=== PATIENT | male | born 1980 | race Caucasian/White ===

== ENCOUNTER 2017-12-07 02:18 | Emergency (ER) | payer BC ==
[2017-12-07 02:35] VITALS: BMI 21.4
[2017-12-07] MEDS ORDERED: Sodium Chloride 0.9% 1,000 ML IV ONE (02:42)
--- NOTE | 2017-12-07 02:47 | C.PDOC ---
History Of Present Illness 36 year old male presents to the ED complaining of left sided flank pain starting 3 hours ago. Patient states he noticed dark urine. Patient reports he has a history of kidney stones and has not had one in three years but current symptoms feel similar. Patient reports he took naproxen and felt no relief; denies any other physical complaint. Time Seen by Provider: 12/07/17 02:42 Chief Complaint (Nursing): Abdominal Pain History Per: Patient History/Exam Limitations: no limitations Onset/Duration Of Symptoms: Hrs (x3) Current Symptoms Are (Timing): Still Present Location Of Pain/Discomfort: RLQ Quality Of Discomfort: "Pain" Associated Symptoms: Urinary Symptoms (dark urine) Past Medical History Reviewed: Historical Data, Nursing Documentation, Vital Signs Vital Signs: Last Vital Signs Temp 97.8 F 12/07/17 02:35 Pulse 62 12/07/17 02:35 Resp 19 12/07/17 02:35 BP 126/88 12/07/17 02:35 Pulse Ox 100 12/07/17 05:25 Surgical History: Appendectomy Family History: States: Unknown Family Hx - Social History Hx Alcohol Use: No Hx Substance Use: No - Immunization History Hx Tetanus Toxoid Vaccination: No Hx Influenza Vaccination: No Hx Pneumococcal Vaccination: No Review Of Systems Except As Marked, All Systems Reviewed And Found Negative. Genitourinary: Positive for: Other (Dark urine) Physical Exam - Physical Exam Appears: Non-toxic, Other (uncomfortable) Cardiovascular: Rhythm Regular Respiratory: Normal Breath Sounds, No Rales, No Rhonchi, No Wheezing Gastrointestinal/Abdominal: Soft, No Tenderness Back: No CVA Tenderness Neurological/Psych: Oriented x3, Normal Sensation, Other (no focal deficits) Gait: Steady ED Course And Treatment - Laboratory Results Result Diagrams: 12/07/17 03:02 12/07/17 03:02 Lab Interpretation: Abnormal O2 Sat by Pulse Oximetry: 100 (RA) Pulse Ox Interpretation: Normal - CT Scan/US abd/pelvis Other Rad Studies (CT/US): Read By Radiologist, Radiology Report Reviewed ( Ashley Lozano MD) CT/US Interpretation: EXAM: CT Abdomen and Pelvis Without Intravenous Contrast. CLINICAL HISTORY: 36 years old, male; Pain; Abdominal pain and other : Ho kidney stone; Additional info: Left flank pain. h. O stones. TECHNIQUE: Axial computed tomography images of the abdomen and pelvis without intravenous contrast. All CT. scans at this facility use one or more dose reduction techniques, viz.: automated exposure control;. ma/kV adjustment per patient size (including targeted exams where dose is matched to indication; i.e. head) ; or iterative reconstruction technique. 648 images are submitted. Axial images are submitted. in soft tissue and lung windows. Coronal and sagittal reformatted images were created and reviewed. COMPARISON: No relevant prior studies available. FINDINGS: Artifacts: Limited due to motion and misregistration artifacts. Limitations: Absence of IV contrast decreases sensitivity for detecting vascular and visceral injury. and abnormality. Lung bases: Unremarkable. No mass. No consolidation. Mediastinum: Small hiatal hernia. ABDOMEN: Liver: Heterogeneous fatty liver. Gallbladder and bile ducts : Contracted gallbladder evaluation of which is limited due to artifact. Pancreas: Unremarkable. No ductal dilation. Spleen: Unremarkable. No splenomegaly. Adrenals: Unremarkable. No mass. Kidneys and ureters: There is [id number] left hydroureteronephrosis with a tiny 1 mm. diameter stones seen on image 76 series 2 representing recently passed stone. Faint densities in the. medullary regions of both kidneys are somewhat nonspecific, perhaps reflecting dense solute,. Jorge's plaque, tiny calcifications, or other debris. Punctate nonobstructive renal stones. Stomach and bowel: Diverticulosis. Nonspecific gastric distention is likely due to recent ingestion. versus delayed emptying. No mucosal thickening. Appendix: Normal appendix. PELVIS: Bladder: Partially decompressed bladder with bladder wall thickening. Correlation with urinalysis is. recommended only if clinical cystitis is suspected. There is 1 mm right bladder base stone. Reproductive: Unremarkable. ABDOMEN and PELVIS: Intraperitoneal space: Unremarkable. No free air. No significant fluid collection. Bones/joints: Bilateral femoral sclerotic densities likely representing bone island. No acute fracture. No dislocation. Soft tissues: Unremarkable. Vasculature: The aorta is normal in caliber and there are no esther-aortic collections. Lymph nodes: Subcentimeter para-aortic and mesenteric lymph nodes. IMPRESSION: 1. There is mild-to- moderate left hydroureteronephrosis with a tiny 1 mm diameter stones seen on. image 76 series 2 representing recently passed stone. Thank you for allowing us to participate in the care of your patient. Dictated and Authenticated by: Ashley Lozano MD. 12/07/2017 5:18 AM Eastern Time ([place] & [place]) Medical Decision Making Medical Decision Making: Impression: flank pain, likely kidney stone Plan: --CT Abd/Pelvis --CMP --CBC --Sodium Chloride --Toradol --Urine Culture --Urinalysis Progress: Labs reviewed, urine shows blood; CT pending [address] CT shows [id number] left hydroureteronephrosis with a tiny 1 mm diameter stones seen on image 76 series 2 representing recently passed stone 0521 Discussed results of labs and CT with patient. He was resting comfortably and reported pain had much improved. He has no fever and stable vital signs. I advised him to follow up with urologist. Patient agrees with plan for discharge. Patient feels comfortable going home with Rx. Instructed to return to ER if symptoms worsen or new symptoms arise. Disposition Counseled Patient/Family Regarding: Studies Performed, Diagnosis, Need For Followup, Rx Given - Disposition Referrals: Nayan Sullivan MD [Staff Provider] - Disposition: HOME/ ROUTINE Disposition Time: 05:27 Condition: IMPROVED Additional Instructions: Your CT scan shows 1mm stone to left side, which passed. It is advised that you follow up with urologist. Drink fluids and take medications as follows: Cipro to prevent infection Flomax to help urinate and excrete stone Motrin for mild to moderate pain Tramadol for severe pain Return to the emergency department at any time if symptoms persist or worsen. Prescriptions: Ciprofloxacin [Cipro] 1 tab PO BID #14 tab Ibuprofen [Motrin] 600 mg PO Q8 #30 tab Tamsulosin [Flomax] 0.4 mg PO DAILY #10 cap traMADol [Ultram] 50 mg PO Q8 PRN #20 tab PRN Reason: Pain, Severe (8-10) Instructions: Kidney Stones (DC) Forms: Xeebel (Amharic) - POA Present On Arrival: None - Clinical Impression Clinical Impression: Kidney stone on left side - Scribe Statement Scribe Attestation: Documented by Emmanuel Richard, acting as a scribe for Briana CORNELIUS. Provider Scribe Attestation: All medical record entries made by the Scribe were at my direction and personally dictated by me. I have reviewed the chart and agree that the record accurately reflects my personal performance of the history, physical exam, medical decision making, and the department course for this patient. I have also personally directed, reviewed, and agree with the discharge instructions and disposition.
[2017-12-07] MEDS ORDERED: Sodium Chloride 0.9% 1,000 ML ONE (02:49)
[2017-12-07 03:05] LABS: BASO % 0.3 % (0.0-2.0); EOS % 0.3 % (0.0-4.0); HEMOGLOBIN 15.7 g/dL (12.0-18.0); LYMPH % 7.5 % (20.0-40.0); MEAN CELL VOLUME 92.4 fL (80.0-94.0); MEAN CORPUSCULAR HEMOGLOBIN 31.4 pg (27.0-31.0); MEAN CORPUSCULAR HGB CONC 33.9 g/dL (33.0-37.0); MEAN PLATELET VOLUME 9.5 fL (7.2-11.7); MONO # 0.4 K/uL (0.0-0.8); MONO % 3.1 % (0.0-10.0); NEUT # 11.6 K/uL (1.8-7.0); NEUT % 88.8 % (50.0-75.0); PLATELET COUNT 232 K/uL (130-400); RBC 4.99 Mil/uL (4.40-5.90); RED CELL DISTRIBUTION WIDTH 13.1 % (11.5-14.5)
[2017-12-07 03:12] LABS: URINE BILIRUBIN NEGATIVE (NEGATIVE); URINE BLOOD 2+ (NEGATIVE); URINE CLARITY Clear (Clear); URINE COLOR Yellow (YELLOW); URINE GLUCOSE (UA) NORMAL (Normal); URINE LEUKOCYTE ESTERASE NEG Leu/uL (Negative); URINE PROTEIN 1+ mg/dL (NEGATIVE); URINE UROBILINOGEN NORMAL mg/dL (0.2-1.0)
[2017-12-07 03:20] LABS: ALB/GLOB RATIO 1.2 (1.0-2.1); ALBUMIN 4.4 g/dL (3.5-5.0); CALCIUM 9.2 mg/dl (8.6-10.4); GFR AFRICAN-AMERICAN > 60; GFR NON-AFRICAN AMERICAN > 60
[2017-12-07 03:33] LABS: ALT/SGPT 37 U/L (21-72); AST/SGOT 29 U/L (17-59); BLOOD UREA NITROGEN 16 mg/dL (9-20)
--- NOTE | 2017-12-07 05:18 | CT ---
EXAM: CT Abdomen and Pelvis Without Intravenous Contrast CLINICAL HISTORY: 36 years old, male; Pain; Abdominal pain and other: Ho kidney stone; Additional info: Left flank pain h. O stones TECHNIQUE: Axial computed tomography images of the abdomen and pelvis without intravenous contrast. All CT scans at this facility use one or more dose reduction techniques, viz.: automated exposure control; ma/kV adjustment per patient size (including targeted exams where dose is matched to indication; i.e. head); or iterative reconstruction technique. 648 images are submitted. Axial images are submitted in soft tissue and lung windows. Coronal and sagittal reformatted images were created and reviewed. COMPARISON: No relevant prior studies available. FINDINGS: Artifacts: Limited due to motion and misregistration artifacts. Limitations: Absence of IV contrast decreases sensitivity for detecting vascular and visceral injury and abnormality. Lung bases: Unremarkable. No mass. No consolidation. Mediastinum: Small hiatal hernia. ABDOMEN: Liver: Heterogeneous fatty liver. Gallbladder and bile ducts: Contracted gallbladder evaluation of which is limited due to artifact. Pancreas: Unremarkable. No ductal dilation. Spleen: Unremarkable. No splenomegaly. Adrenals: Unremarkable. No mass. Kidneys and ureters: There is [id number] left hydroureteronephrosis with a tiny 1 mm diameter stones seen on image 76 series 2 representing recently passed stone. Faint densities in the medullary regions of both kidneys are somewhat nonspecific, perhaps reflecting dense solute, Jorge's plaque, tiny calcifications, or other debris. Punctate nonobstructive renal stones. Stomach and bowel: Diverticulosis. Nonspecific gastric distention is likely due to recent ingestion versus delayed emptying. No mucosal thickening. Appendix: Normal appendix. PELVIS: Bladder: Partially decompressed bladder with bladder wall thickening. Correlation with urinalysis is recommended only if clinical cystitis is suspected. There is 1 mm right bladder base stone. Reproductive: Unremarkable. ABDOMEN and PELVIS: Intraperitoneal space: Unremarkable. No free air. No significant fluid collection. Bones/joints: Bilateral femoral sclerotic densities likely representing bone island. No acute fracture. No dislocation. Soft tissues: Unremarkable. Vasculature: The aorta is normal in caliber and there are no esther-aortic collections. Lymph nodes: Subcentimeter para-aortic and mesenteric lymph nodes. IMPRESSION: 1. There is [id number] left hydroureteronephrosis with a tiny 1 mm diameter stones seen on image 76 series 2 representing recently passed stone.
[2017-12-07 05:22] LABS: BANDS 3 % (0-2); EOSINOPHIL 3 % (0-4); LYMPHOCYTE 4 % (20-40); NEUTROPHIL 86 % (50-75); REACTIVE LYMPHOCYTES 4 % (0-0); TOTAL CELLS COUNTED 100
[2017-12-07 05:23] LABS: PLATELET ESTIMATE NORMAL (NORMAL)
[2017-12-07 05:24] LABS: MONOCYTE 0 % (0-10)
[2017-12-07 05:49] VITALS: BP 132/68; PULSE 78; RESP 20; TEMP 98
[2017-12-07 06:17] VITALS: O2SAT 100
== END 2017-12-07 05:48 | disposition home or self-care (01) ==
LOC: C.ER 02:18
DX: N13.2 Hydronephrosis with renal and ureteral calculous obstruction (principal); Z87.442 Personal history of urinary calculi
CPT/HCPCS: 74176; 80053; 81001; 85025; 96361; 96374; 99284; J1885; J7040